=== PATIENT | male | born 1955 | race Caucasian/White ===

== ENCOUNTER → 2016-10-27 | Outpatient (CLI) | payer BC ==
[2016-10-27 11:48] LABS: CHLORIDE,CL 94 mmol/L (98-110); SODIUM,NA 137 mmol/L (136-146)
== END ==
LOC: MW.CHFP 10:52
PROVIDERS: ATTEND Nurse Practitioner Family
DX: M10.9 Gout, unspecified (principal); I10 Essential (primary) hypertension; R73.09 Other abnormal glucose
CPT/HCPCS: 36415; 80053; 80061; 83036; 84550

== ENCOUNTER 2019-11-08 16:48 | Emergency (ER) | payer BC, MEDICARE ==
[2019-11-08] MEDS ORDERED: Ondansetron 4 MG/2 ML SDV IVPUSH ONE (17:17)
[2019-11-08] MEDS ORDERED: Sodium Chloride 0.9% 10 ML Syringe FLUSH PRN (17:17)
[2019-11-08] MEDS ORDERED: Sodium Chloride 0.9% 2.5 ML Syringe FLUSH PRN ×2 (17:17)
[2019-11-08] MEDS ORDERED: Sodium Chloride 0.9% 1,000 ML IV ONE (17:17)
[2019-11-08] MEDS ORDERED: Pantoprazole 80 MG in Sodium Chloride 0.9% 10 ML IV ONE (17:19)
--- NOTE | 2019-11-08 17:30 | EDM.PDOC ---
ED HPI GENERAL MEDICAL PROBLEM - General Chief Complaint: Gastrointestinal Problem Stated Complaint: BLOOD IN STOOLS Time Seen by Provider: 11/08/19 16:55 Source of Information: Reports: Patient - History of Present Illness INITIAL COMMENTS - FREE TEXT/NARRATIVE: History of present illness: Presents with a 3-day history of bright red blood per stool he had some minor episodes last couple days but today he had a large volume of bright red blood in the toilet bowl he has been complaining of some mild lower abdominal cramping pain and some mild nausea he has a history of A. fib and is on Xarelto . Also has a history of daily beer intake 3 beers per day has any prior episodes of GI bleeding he denies any dizziness lightheadedness or shortness of breath. [] Review of systems: As per history of present illness and below otherwise all systems reviewed and negative. Past medical history: As per history of present illness and as reviewed below otherwise noncontributory. Surgical history: As per history of present illness and as reviewed below otherwise noncontributory. Social history: No reported history of drug or alcohol abuse. Family history: As per history of present illness and as reviewed below otherwise noncontributory. Physical exam: HEENT: Atraumatic, normocephalic, pupils reactive, negative for conjunctival pallor or scleral icterus, mucous membranes moist, throat clear, neck supple, nontender, trachea midline. Lungs: Clear to auscultation, breath sounds equal bilaterally, chest nontender. Heart: S1S2, regular, negative for clicks, rubs, or JVD. Abdomen: Soft, there is some mild distention and mild lower abdominal tenderness that is nonspecific without guarding or rebound. Negative for masses or hepatosplenomegaly. Negative for costovertebral tenderness. Pelvis: Stable nontender. Genitourinary: Deferred. Rectal: Mild hemorrhoid disease present normal tone brown stool Hemoccult positive Extremities: Atraumatic, negative for cords or calf pain. Neurovascular unremarkable. Neuro: Awake, alert, oriented. Cranial nerves II through XII unremarkable. Cerebellum unremarkable. Motor and sensory unremarkable throughout. Exam nonfocal. Diagnostics: [] Therapeutics: [] Impression: GI bleed [] Plan: Lab studies will be obtained fluid bolus given Protonix started Zofran started patient will be reassessed. [] Definitive disposition and diagnosis as appropriate pending reevaluation and review of above. Abdomen Pain Score (Numeric/FACES): 5 - Related Data Allergies Allergy/AdvReac Type Severity Reaction Status Date / Time Spinach Allergy Sneezing Uncoded 11/08/19 16:55 Home Meds: Home Meds Albuterol [Proair HFA] 2 puff IH Q4H PRN 10/19/13 [History] Fluticasone/Salmeterol [Advair 250-50] 1 puff INH BID 10/19/13 [History] Potassium Chloride [Klor-Con M20] 20 meq PO BIDMEALS 10/19/13 [History] allopurinoL [Zyloprim] 300 mg PO DAILY 10/19/13 [History] Chlorthalidone 25 mg PO DAILY 10/24/13 [History] atorvaSTATin Calcium [Atorvastatin Calcium] 10 mg PO BEDTIME 10/03/15 [History] Montelukast Sodium 10 mg PO BEDTIME 11/08/19 [History] Ramipril [Altace] 5 mg PO DAILY 11/08/19 [History] Rivaroxaban [Xarelto] 20 tab PO WITHDINNER 11/08/19 [History] Past Medical History HEENT History: Reports: Allergic Rhinitis, Impaired Vision Other HEENT History: wears glasses Cardiovascular History: Reports: Afib, High Cholesterol, Hypertension Respiratory History: Reports: Asthma Gastrointestinal History: Reports: None Genitourinary History: Reports: None Musculoskeletal History: Reports: Back Pain, Chronic, Fracture, Gout, Osteoarthritis Other Musculoskeletal History: fx of right hand Neurological History: Reports: None Psychiatric History: Reports: None Endocrine/Metabolic History: Reports: None 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 Hematologic History: Reports: None Immunologic History: Reports: None Oncologic (Cancer) History: Reports: None Dermatologic History: Reports: None - Infectious Disease History Infectious Disease History: Reports: None - Past Surgical History Head Surgeries/Procedures: Reports: None HEENT Surgical History: Reports: Cataract Surgery Respiratory Surgical History: Reports: None GI Surgical History: Reports: None Male Surgical History: Reports: Vasectomy Endocrine Surgical History: Reports: None Neurological Surgical History: Reports: None Musculoskeletal Surgical History: Reports: Knee Replacement, Shoulder Surgery Oncologic Surgical History: Reports: None Dermatological Surgical History: Reports: None Social & Family History - Family History Family Medical History: Noncontributory - Tobacco Use Smoking Status *Q: Never Smoker - Caffeine Use Caffeine Use: Reports: Tea - Recreational Drug Use Recreational Drug Use: No ED ROS GENERAL - Review of Systems Review Of Systems: See Below ED EXAM, GENERAL - Physical Exam Exam: See Below Course - Vital Signs Text/Narrative:: [id number] I discussed the case with Dr. [facility] general surgery they are unable to do therapeutic endoscopy at this facility patient will need to be transferred due to GI bleeding with anticoagulation. Last Recorded V/S: Last Vital Signs Temp 35.8 C L 11/08/19 16:56 Pulse 88 11/08/19 17:30 Resp 18 11/08/19 17:30 BP 160/98 H 11/08/19 17:30 Pulse Ox 96 11/08/19 17:30 - Orders/Labs/Meds Orders: Active Orders 24 hr Category Date Time Status Hemoccult [OCCULT BLOOD DIAGNOSTIC] [OP] Stat Lab 11/08/19 17:41 Ordered TYPE AND SCREEN [BBK] Stat Lab 11/08/19 17:21 Ordered Sodium Chloride 0.9% [Normal Saline] 1,000 ml Med 11/08/19 17:17 Active IV BOLUS Sodium Chloride 0.9% [Saline Flush] Med 11/08/19 17:17 Active 10 ml FLUSH ASDIRECTED PRN Sodium Chloride 0.9% [Saline Flush] Med 11/08/19 17:17 Active 2.5 ml FLUSH ASDIRECTED PRN Sodium Chloride 0.9% [Saline Flush] Med 11/08/19 17:17 Active 2.5 ml FLUSH ASDIRECTED PRN Saline Lock Insert [OM.PC] Stat Oth 11/08/19 17:17 Ordered Medication Orders Sodium Chloride (Normal Saline) 1,000 mls @ 999 mls/hr IV BOLUS ONE Stop: 11/08/19 18:17 Last Admin: 11/08/19 17:29 Dose: 999 mls/hr Sodium Chloride (Saline Flush) 2.5 ml FLUSH ASDIRECTED PRN PRN Reason: Keep Vein Open Sodium Chloride (Saline Flush) 10 ml FLUSH ASDIRECTED PRN PRN Reason: Keep Vein Open Sodium Chloride (Saline Flush) 2.5 ml FLUSH ASDIRECTED PRN PRN Reason: Keep Vein Open Labs: Laboratory Tests 11/08/19 11/08/19 11/08/19 Range/Units 17:05 17:05 17:05 WBC 10.89 (4.0-11.0) K/uL RBC 4.76 (4.50-5.90) M/uL Hgb 15.8 (13.0-17.0) g/dL Hct 45.1 (38.0-50.0) % MCV 94.7 (80.0-98.0) fL MCH 33.2 H (27.0-32.0) pg MCHC 35.0 (31.0-37.0) g/dL RDW Std Deviation 44.4 (28.0-62.0) fl RDW Coeff of Vinicio 13 (11.0-15.0) % Plt Count 207 (150-400) K/uL MPV 9.80 (7.40-12.00) fL Neut % (Auto) 62.9 (48.0-80.0) % Lymph % (Auto) 22.9 (16.0-40.0) % [place] % (Auto) 11.9 (0.0-15.0) % Eos % (Auto) 1.6 (0.0-7.0) % Baso % (Auto) 0.7 (0.0-1.5) % Neut # (Auto) 6.9 H (1.4-5.7) K/uL Lymph # (Auto) 2.5 H (0.6-2.4) K/uL [place] # (Auto) 1.3 H (0.0-0.8) K/uL Eos # (Auto) 0.2 (0.0-0.7) K/uL Baso # (Auto) 0.1 (0.0-0.1) K/uL Nucleated RBC % 0.0 /100WBC Nucleated RBCs # 0 K/uL INR 1.36 APTT 31.3 (18.6-31.3) SEC Sodium 136 (136-148) mmol/L Potassium 3.2 L (3.5-5.1) mmol/L Chloride 96 L (98-107) mmol/L Carbon Dioxide 33.0 H (21.0-32.0) mmol/L BUN 18 (7.0-18.0) mg/dL Creatinine 1.1 (0.8-1.3) mg/dL Est Cr Clr Drug Dosing 78.95 mL/min Estimated GFR (MDRD) > 60.0 ml/min Glucose 120 H (74-106) mg/dL Calcium 8.5 (8.5-10.1) mg/dL Total Bilirubin 0.9 (0.2-1.0) mg/dL AST 98 H (15-37) IU/L ALT 64 H (14-63) IU/L Alkaline Phosphatase 120 H (46-116) U/L Total Protein 7.6 (6.4-8.2) g/dL Albumin 3.3 L (3.4-5.0) g/dL Globulin 4.3 H (2.6-4.0) g/dL Albumin/Globulin Ratio 0.8 L (0.9-1.6) Lipase 344 (73-393) U/L Meds: Medications Generic Name Dose Route Start Last Admin Trade Name Freq PRN Reason Stop Dose Admin Sodium Chloride 1,000 mls @ 999 mls/hr 11/08/19 17:17 11/08/19 17:29 Normal Saline IV 11/08/19 18:17 999 mls/hr BOLUS ONE Administration Sodium Chloride 2.5 ml 11/08/19 17:17 Saline Flush FLUSH ASDIRECTED PRN Keep Vein Open Sodium Chloride 10 ml 11/08/19 17:17 Saline Flush FLUSH ASDIRECTED PRN Keep Vein Open Sodium Chloride 2.5 ml 11/08/19 17:17 Saline Flush FLUSH ASDIRECTED PRN Keep Vein Open Discontinued Medications Generic Name Dose Route Start Last Admin Trade Name Pilar PRN Reason Stop Dose Admin Pantoprazole Sodium 80 mg/ 10 mls @ 300 mls/hr 11/08/19 17:19 11/08/19 17:29 Sodium Chloride IV 11/08/19 17:20 300 mls/hr NOW ONE Administration Ondansetron HCl 4 mg 11/08/19 17:17 11/08/19 17:30 Zofran IVPUSH 11/08/19 17:18 4 mg ONETIME ONE Administration - Re-Assessments/Exams Free Text/Narrative Re-Assessment/Exam: 11/08/19 18:[address] Chatterjee at [facility] and they will accept the patient in transfer 1805. Was reassessed vital signs are stable H&H is normal at this time Departure - Departure Time of Disposition: 18:00 Disposition: DC/Tfer to Other 70 Clinical Impression: GI bleed Qualifiers: GI bleed type/associated pathology: unspecified gastrointestinal hemorrhage type Qualified Code(s): K92.2 - Gastrointestinal hemorrhage, unspecified - Discharge Information *PRESCRIPTION DRUG MONITORING PROGRAM REVIEWED*: Not Applicable *COPY OF PRESCRIPTION DRUG MONITORING REPORT IN PATIENT SANTANA: Not Applicable Referrals: Smiley Segura FIN[employer]ER [Primary Care Provider] - Forms: ED Department Discharge Sepsis Event Note - Evaluation Sepsis Screening Result: No Definite Risk - Focused Exam Vital Signs: Vital Signs Temp Pulse Resp BP Pulse Ox 11/08/19 17:30 88 18 160/98 H 96 11/08/19 16:56 35.8 C L 105 H 18 179/121 H 98 Date Exam was Performed: 11/08/19 Time Exam was Performed: 18:10 - My Orders Last 24 Hours: My Active Orders 11/08/19 17:17 Sodium Chloride 0.9% [Normal Saline] 1,000 ml IV BOLUS Sodium Chloride 0.9% [Saline Flush] 10 ml FLUSH ASDIRECTED PRN Sodium Chloride 0.9% [Saline Flush] 2.5 ml FLUSH ASDIRECTED PRN Sodium Chloride 0.9% [Saline Flush] 2.5 ml FLUSH ASDIRECTED PRN Saline Lock Insert [OM.PC] Stat 11/08/19 17:21 TYPE AND SCREEN [BBK] Stat 11/08/19 17:41 Hemoccult [OCCULT BLOOD DIAGNOSTIC] [OP] Stat - Assessment/Plan Last 24 Hours: My Active Orders 11/08/19 17:17 Sodium Chloride 0.9% [Normal Saline] 1,000 ml IV BOLUS Sodium Chloride 0.9% [Saline Flush] 10 ml FLUSH ASDIRECTED PRN Sodium Chloride 0.9% [Saline Flush] 2.5 ml FLUSH ASDIRECTED PRN Sodium Chloride 0.9% [Saline Flush] 2.5 ml FLUSH ASDIRECTED PRN Saline Lock Insert [OM.PC] Stat 11/08/19 17:21 TYPE AND SCREEN [BBK] Stat 11/08/19 17:41 Hemoccult [OCCULT BLOOD DIAGNOSTIC] [OP] Stat
[2019-11-08 18:07] LABS: BLOOD UREA NITROGEN,BUN 18 mg/dL (7.0-18.0); CHLORIDE,CL 96 mmol/L (98-107); GLUCOSE RANDOM 120 mg/dL (74-106); LIPASE 344 U/L (73-393); POTASSIUM,K 3.2 mmol/L (3.5-5.1); SODIUM,NA 136 mmol/L (136-148)
[2019-11-08 18:20] VITALS: BP 152/93; PULSE 90
[2019-11-08] MEDS ORDERED: Potassium Chloride 20 MEQ Tab.ER PO ONE (18:30)
[2019-11-08] MEDS ORDERED: HYDROmorphone 1 MG/ML Syringe IVPUSH ONE (19:15)
== END 2019-11-08 19:34 | disposition other institution (70) ==
LOC: MW.ED 16:48
DX: K92.2 Gastrointestinal hemorrhage, unspecified (principal); I48.91 Unspecified atrial fibrillation; E78.00 Pure hypercholesterolemia, unspecified; I10 Essential (primary) hypertension; J45.909 Unspecified asthma, uncomplicated; Z79.01 Long term (current) use of anticoagulants; Z91.018 Allergy to other foods; Z79.899 Other long term (current) drug therapy
CPT/HCPCS: 80053; 83690; 85025; 85610; 85730; 86850; 86900; 86901; 96374; 96375; 99285; A9270; C9113; J1170; J2405; J7030; J7050; 99283

== ENCOUNTER 2023-11-25 13:38 | Emergency (ER) | payer MEDICARE ==
[2023-11-25 14:22] LABS: HEMATOCRIT 38.7 % (42.0-52.0); HEMOGLOBIN 13.8 g/dL (14.0-18.0); MEAN CORPUSCULAR HEMOGLOBIN 31.3 pg (28.0-32.0); MEAN CORPUSCULAR HGB CONC 35.7 g/dL (32.0-36.0); MEAN CORPUSCULAR VOLUME 87.8 fL (83.0-99.0); MEAN PLATELET VOLUME 9.4 fL (9.4-12.4); PLATELET COUNT,PLT 190 K/uL (150-400); RED BLOOD CELL COUNT 4.41 M/uL (4.52-5.90); WHITE BLOOD CELL COUNT,WBC 4.72 K/uL (3.9-11.3)
[2023-11-25 14:32] LABS: BASOPHILS ABSOLUTE MAN 0.05 K/uL (0.00-0.20); BASOPHILS PERCENT MAN 1 % (0-1); LYMPHOCYTES ABSOLUTE MAN 0.66 K/uL (1.00-4.80); LYMPHOCYTES PERCENT MAN 14 % (24-44); MONOCYTES ABSOLUTE MAN 0.76 K/uL (0.00-0.80); MONOCYTES PERCENT MAN 16 % (0-8); SEG NEUTROPHILS ABSOLUTE MAN 3.26 K/uL (1.80-7.70); SEG NEUTROPHILS PERCENT MAN 69 % (41-71)
[2023-11-25 14:54] LABS: ALANINE AMINOTRANSFERASE,ALT 18 IU/L (14-63); ALBUMIN 3.1 g/dL (3.4-5.0); ALKALINE PHOSPHATASE 112 U/L (46-116); ASPARTATE AMNIOTRANSFERASE,AST 21 IU/L (15-37); BILIRUBIN TOTAL 0.8 mg/dL (0.2-1.0); BLOOD UREA NITROGEN,BUN 9 mg/dL (7.0-18.0); CALCIUM 8.2 mg/dL (8.5-10.1); CARBON DIOXIDE,CO2 32.3 mmol/L (21.0-32.0); CHLORIDE,CL 93 mmol/L (98-107); CREATININE 0.9 mg/dL (0.8-1.3); GLUCOSE RANDOM 103 mg/dL (74-106); POTASSIUM,K 2.8 mmol/L (3.5-5.1); PROTEIN TOTAL,TP 7.9 g/dL (6.4-8.2); SODIUM,NA 133 mmol/L (136-148)
[2023-11-25 15:05] LABS: A/G RATIO 0.7 (0.9-1.6); ESTIMATED GFR 92 mL/min (>60)
[2023-11-25] MEDS ORDERED: Potassium Chloride 100 ML IV SCH (15:15)
[2023-11-25 15:25] LABS: CORONAVIRUS COVID-19 NAA NEGATIVE (NEGATIVE); INFLUENZA A NAA POSITIVE (NEGATIVE); INFLUENZA B NAA NEGATIVE (NEGATIVE); RESPIRATORY SYNCYTIAL VIR NAA NEGATIVE (NEGATIVE)
[2023-11-25] MEDS: NS with KCl 40mEq 1,000 ML IV ONE (15:59)
[2023-11-25] MEDS: Sodium Chloride 0.9% 1,000 ML IV ONE (15:59)
[2023-11-25 20:07] VITALS: BP 154/64; PULSE 74
== END 2023-11-25 20:17 | disposition home or self-care (01) ==
LOC: MW.ED 13:38
DX: J10.1 Influenza due to other identified influenza virus with other respiratory manifestations (principal); J40 Bronchitis, not specified as acute or chronic; E86.0 Dehydration; E87.6 Hypokalemia; I10 Essential (primary) hypertension; E78.00 Pure hypercholesterolemia, unspecified; Z75.8 Other problems related to medical facilities and other health care; Z91.018 Allergy to other foods; Z79.899 Other long term (current) drug therapy
CPT/HCPCS: 0241U; 36415; 71045; 80053; 84484; 85025; 96365; 96366; 99285; J3480; 93010; 99283

== ENCOUNTER 2024-04-29 07:10 | Day surgery (SDC) | payer MEDICARE ==
[2024-04-29] MEDS ORDERED: propofoL 50 ML ONE (07:23)
[2024-04-29] MEDS: Lactated Ringers 1,000 ML IV SCH (07:52)
[2024-04-29] MEDS ORDERED: Propofol 200 MG/20 ML SDV ONE (08:04)
[2024-04-29 09:59] VITALS: BP 122/74; PULSE 62
== END 2024-04-29 09:05 | disposition home or self-care (01) ==
LOC: MW.SDS 07:10
PROVIDERS: ATTEND Surgery
DX: Z12.11 Encounter for screening for malignant neoplasm of colon (principal); D12.2 Benign neoplasm of ascending colon; K57.30 Diverticulosis of large intestine without perforation or abscess without bleeding; J44.89 Other specified chronic obstructive pulmonary disease; E78.00 Pure hypercholesterolemia, unspecified; I10 Essential (primary) hypertension; I48.91 Unspecified atrial fibrillation; Z86.16 Personal history of COVID-19; Z79.899 Other long term (current) drug therapy; Z86.0100 Personal history of colon polyps, unspecified
CPT/HCPCS: 45385; 88305; J2704; J7120; 00811; 99100; J3490